=== PATIENT | female | born 1960 | race African-American/Black ===

== ENCOUNTER 2016-10-18 18:27 | Emergency (ER) | payer SELFPAY ==
[~2016-10-18] VITALS: Ht 154.9 cm; Wt 83.1 kg
[~2016-10-18 18:27] MED LIST: NAPROSYN500 MG PO; VALIUM5 MG PO; no home med
[2016-10-18] MEDS ORDERED: ULTRACET1 TABLET PO (20:02)
[2016-10-18] MEDS ORDERED: KEFLEX500 MG PO (20:02)
[2016-10-18] MEDS ORDERED: MOTRIN800 MG PO (20:02)
[2016-10-18 20:25] VITALS: BP 130/105
== END 2016-10-18 20:26 | disposition home or self-care (01) ==
LOC: EME 18:27
PROC: 0H9MXZZ Drainage of Right Foot Skin, External Approach (ICD-10-PCS; principal; 2016-10-18)
DX: L60.0 Ingrowing nail (principal); L03.031 Cellulitis of right toe; F17.200 Nicotine dependence, unspecified, uncomplicated
CPT/HCPCS: 87070; 87075; 87077; 87147; 87186; 87205; 99281; 99284; S0020

== ENCOUNTER 2018-01-20 06:11 | Emergency (ER) | payer OTHER ==
[~2018-01-20] VITALS: Ht 162.6 cm; Wt 96.7 kg
[~2018-01-20 06:11] MED LIST changes: +KEFLEX500 MG PO; +MOTRIN800 MG PO; +ULTRACET1 TABLET PO
[2018-01-20 06:58] LABS: BASOPHIL (%) 0.2 % (0-1); EOSINOPHIL (%) 0.6 % (0-5); EOSINOPHIL COUNT 0.1 K/uL (0-0.3); HEMATOCRIT 39.6 % (36.0-46.0); HEMOGLOBIN 13.4 G/DL (11.9-15.5); IMMATURE GRANULOCYTE (%) 0.3 % (0.0-0.7); LYMPHOCYTE (%) 17.2 % (15-42); LYMPHOCYTE COUNT 2.2 K/uL (1.0-2.8); MCH 28.5 PG (29.0-34.0); MCHC 33.8 G/DL (30.0-36.0); MCV 84.3 FL (83-99); MONOCYTE (%) 4.1 % (3-12); MONOCYTE COUNT 0.5 K/uL (0-0.8); NEUTROPHIL (%) 77.6 % (45-76); NEUTROPHIL COUNT 9.8 K/uL (1.8-6.4); PLATELET COUNT 229 K/uL (156-360); RBC DIS.WIDTH-CV 15.2 % (11.8-14.6); RBC DIS.WIDTH-SD 46.9 % (39-53); WHITE BLOOD COUNT 12.6 K/uL (4.1-10.2)
[2018-01-20 07:34] LABS: ALBUMIN 4.8 G/DL (3.2-4.8); ALKALINE PHOSPHATASE 61 IU/L (3-129); ALT (GPT) 20 IU/L (3-49); AST (GOT) 22 IU/L (2-34); CHLORIDE 102 MEQ/L (99-109); CREATININE 0.9 MG/DL (0.6-1.3); GFR ESTIMATE (CALCULATED) > 59 mL/min/; GLUCOSE 194 mg/dL (70-99); LIPASE 17 U/L (1.0-51.0); SODIUM 138 MEQ/L (136-147); TOTAL BILIRUBIN 0.4 MG/DL (0.0-1.0); TOTAL PROTEIN 8.1 G/DL (6.4-8.3); UREA NITROGEN (BUN) 15 mg/dL (9-23)
[2018-01-20 08:53] LABS: APPEARANCE CLEAR ((CLEAR)); BILIRUBIN NEGATIVE; BLOOD SMALL; COLOR STRAW ((YELLOW)); GLUCOSE (STRIP) 50; KETONES NEGATIVE; LEUKOCYTES NEGATIVE; NITRITE NEGATIVE; PROTEIN (STRIP) 30; SPECIFIC GRAVITY 1.016 (1.000-1.030); UROBILINOGEN 0.2 MG/DL (0.2-1.0)
[2018-01-20 09:02] LABS: BACTERIA NONE SEEN /HPF; EPITHELIAL CELLS RARE /HPF; HYALINE CASTS 0-5 /LPF; MUCUS TRACE /LPF; RED BLOOD CELLS 0-5 /HPF (0-5); UCUL ADDED? NO; WHITE BLOOD CELLS 0-5 /HPF (0-5)
[2018-01-20] MEDS ORDERED: BENTYL20 MG PO (10:10)
[2018-01-20] MEDS ORDERED: IMODIUM A-D2 M2 PO (10:11)
[2018-01-20] MEDS ORDERED: ZOFRAN4 MG PO (10:11)
[2018-01-20 10:28] VITALS: BP 138/83
== END 2018-01-20 10:29 | disposition home or self-care (01) ==
LOC: EME 06:11
PROVIDERS: Emergency Medicine
DX: K52.9 Noninfective gastroenteritis and colitis, unspecified (principal); Z87.891 Personal history of nicotine dependence
CPT/HCPCS: 80053; 81003; 83690; 85025; 99281; 99285; J1885; J2405; J7030